=== PATIENT | female | born 1935 | race Caucasian/White ===

== ENCOUNTER 2021-03-02 09:34 | Emergency (ER) | payer OTHER ==
[~2021-03-02] VITALS: Ht 152.4 cm; Wt 68.0 kg
[2021-03-02] MEDS ORDERED: DEXTROSE 50% 50 ML SYR IVP ONE (09:36)
--- NOTE | 2021-03-02 09:36 | NUR ---
0946 MAIDA ALS TO ER BED 10
[2021-03-02 09:47] VITALS: BP 134/68
--- NOTE | 2021-03-02 09:52 | NUR ---
DR. GOMEZ BEDSIDE ATTEMPTING ULTRASOUND GUIDED IV
[2021-03-02] MEDS ORDERED: KEP500 PO (09:55)
[2021-03-02] MEDS ORDERED: CARV25TA PO (09:55)
[2021-03-02] MEDS ORDERED: AMLO10TA PO (09:55)
[2021-03-02] MEDS ORDERED: ASPI-1822 PO (09:55)
[2021-03-02] MEDS ORDERED: PAX10 PO (09:55)
[2021-03-02] MEDS ORDERED: OMEP40EC23 PO (09:55)
[2021-03-02] MEDS ORDERED: [UNRECOGNIZED DRUG - CODE] MC (09:55)
[2021-03-02] MEDS ORDERED: FURO-570 PO (09:55)
[2021-03-02] MEDS ORDERED: ALLO100T21 PO (09:55)
[2021-03-02] MEDS ORDERED: ATOR10TA PO (09:55)
--- NOTE | 2021-03-02 09:58 | NUR ---
85 Y FEMALE BIBA FROM [facility] DUE TO LOW BLOOD SUGAR. PER EMS PT GLUCOSE WAS 32 ON ARRIVAL. GLUCAGON IM GIVEN X2 TIMES IN FIELD AND RECHECK OF GLUCOSE IN FIELD WAS 34. UPON ARRIVAL GLUCOSE LEVEL IS 49. PT BASELINE IS UNKNOWN, BUT PER EMS PT IS BECOMING MORE ALERT. PT CURRENT GCS 15 AT THIS TIME. EMS ATTEMPTED IV IN FIELD AND UNSUCCESSFUL. SKIN DRY AND BRUISING NOTED THROUGHOUT BILATERAL UE ALONG WITH EDEMA NOTED ON UE HANDS. PT CURRENTLY HAS BELTRE IN PLACE FROM FACILITY. PT ALERT AT THIS TIME AND CURRENTLY A&OX3. PMH: DM, HLD, HTN, CKD, GOUT, GERD, SEZIURE, DEPRESSION HOME MEDS: LASIX, KEPPRA
--- NOTE | 2021-03-02 10:06 | NUR ---
18 G IV ESTABLISHED IN R AC VIA ULTRASOUND BY HAILEY PEREZ. BLOOD WORK COLLECTED FROM IV
--- NOTE | 2021-03-02 10:14 | NUR ---
XRAY BEDSIDE WITH PATIENT
--- NOTE | 2021-03-02 10:18 | NUR ---
SHAR VENEGAS, BLOOD WORK, AND URINE WALKED OVER TO LAB BY INSTALLATION SPECIALIST JAMAL
[2021-03-02 10:28] LABS: BASOPHILS # (AUTO) 0.1 K/uL (0.00-0.22); BASOPHILS % (AUTO) 0.7 % (0.0-2.0); HEMATOCRIT 34.1 % (36-48); HEMOGLOBIN 11.2 g/dL (12.0-16.0); LYMPHOCYTES # (AUTO) 0.7 K/uL (2.5-16.5); LYMPHOCYTES % (AUTO) 6.6 % (20.5-51.1); MEAN CORPUSCULAR HEMOGLOBIN 33 pg (27-31); MEAN CORPUSCULAR HGB CONC 33 g/dL (33-37); MEAN CORPUSCULAR VOLUME 100.9 fL (80-94); MONOCYTES # (AUTO) 0.6 K/uL (0.8-1.0); MONOCYTES % (AUTO) 5.8 % (1.7-9.3); NEUTROPHILS # (AUTO) 9.7 K/uL (1.8-7.7); NEUTROPHILS % (AUTO) 86.9 % (42.2-75.2); PLATELET COUNT (AUTO) 181 K/uL (140-450); RED BLOOD CELL COUNT(AUTO) 3.38 MIL/uL (4.20-5.40); RED CELL DISTRIBUTION WIDTH 18.6 % (11.6-13.7); WHITE BLOOD COUNT (AUTO) 11.1 K/uL (4.8-10.8)
--- NOTE | 2021-03-02 10:31 | NUR ---
PT PROVIDED WITH WARM BLANKET
[2021-03-02 10:34] LABS: BILIRUBIN,URINE NEGATIVE (NEGATIVE); BLOOD, URINE 1+ (NEGATIVE); COLOR,URINE YELLOW (YELLOW); LEUKOCYTE ESTERASE ,URINE 1+ (NEGATIVE); NITRITE, URINE NEGATIVE (NEGATIVE); UGLUCOSE NEGATIVE (NEGATIVE)
[2021-03-02 10:45] LABS: URINE AMORPHOUS URATE 1+ /HPF (None Seen); WBC,URINE 0-5 /HPF (0-5); YEAST,URINE Few /HPF (None Seen)
[2021-03-02 10:47] LABS: APPEARANCE,URINE SLIGHTLY HAZY (CLEAR)
[2021-03-02 10:52] LABS: ALBUMIN 3.6 g/dL (3.4-5.0); ANION GAP 10.2 (8-16); ASPARTATE AMINOTRANSFERASE 43 U/L (15-37); CARBON DIOXIDE 30.7 mmol/L (21-32); CHLORIDE 104 mmol/L (98-107); CREATININE 1.8 mg/dL (0.6-1.3); GLUCOSE 90 mg/dL (74-106); POTASSIUM 3.9 mmol/L (3.5-5.1); SODIUM SERUM 141 mmol/L (136-145); UREA NITROGEN, BLOOD 54 mg/dL (7-18)
--- NOTE | 2021-03-02 11:25 | NUR ---
DR. GOMEZ BEDSIDE SPEAKING WITH PT SON
--- NOTE | 2021-03-02 12:21 | NUR ---
Patient appears to be resting comfortably in bed. Vital Signs within normal limits. Respirations even and unlabored.
--- NOTE | 2021-03-02 12:29 | NUR ---
SPOKE WITH PATIENT PRASAD POOLE AND WAS INFORMED TO CONTACT [facility] TO SET UP TRANSPORATION FOR PATIENT DISCHARGE AT 1400
--- NOTE | 2021-03-02 12:32 | NUR ---
CALLED AND SPOKE WITH GEORGE HURLEY AT [facility]. WAS INFORMED THEY WOULD SET UP TRANSPORATION FOR PATIENT DISCHARGE TODAY AT 1400 Addendum: 03/02/21 at 1412 by [id number] KATRIN RING
--- NOTE | 2021-03-02 13:40 | NUR ---
Patient appears to be resting comfortably in bed. Vital Signs within normal limits. Respirations even and unlabored.
--- NOTE | 2021-03-02 14:11 | NUR ---
CALLED AND SPOKE WITH [facility] AND WAS INFORMED THAT "THEY DO NOT SET UP TRANSPORATION FOR PATIENTS AND THE HOSPITAL IS REQUIRED TO SET UP TRANSPORATION." INFORMED [facility] SPOKE WITH CHARGE NURSE AT 1232 AND WAS TOLD THEY ARE UNABLE TO SET UP TRANSPORATION
--- NOTE | 2021-03-02 14:28 | NUR ---
SPOKE WITH HANNAH FROM [facility] AND WAS INFORMED "THEY NEVER SET UP PATIENT TRANSPORATION AND WE ARE TO SET UP THE TRANSPORATION."
--- NOTE | 2021-03-02 14:30 | NUR ---
SPOKE WITH PATIENT SON VIRGILIO AND WAS INFORMED HE WILL BE HERE WITHIN THE HOUR TO RESP THERAPIST HIS MOTHER TO TAKE HER BACK TO [facility]
[2021-03-02] MEDS ORDERED: CEPH-588 PO (14:48)
--- NOTE | 2021-03-02 15:42 | NUR ---
Patient appears to be resting comfortably in bed. Vital Signs within normal limits. Respirations even and unlabored. PT REPOSITONED FOR COMFORT AT THIS TIME
[2021-03-02 16:17] VITALS: BP 152/70
--- NOTE | 2021-03-02 16:17 | NUR ---
Patient discharged with v/s stable. Written and verbal after care instructions given and explained. Patient alert, oriented and verbalized understanding of instructions. Wheel Chair Assisted with to car. All questions addressed prior to discharge. ID band removed. Patient advised to follow up with PMD. Rx of KEFLEX given. Patient educated on indication of medication including possible reaction and side effects. Opportunity to ask questions provided and answered.
--- NOTE | 2021-03-02 17:47 | NUR ---
CALLED AND GAVE REPORT TO MODESTO WALTER IN REGARDS TO PATIENT D/C
== END 2021-03-02 16:17 | disposition home or self-care (01) ==
LOC: MED 09:34
DX: E11.649 Type 2 diabetes mellitus with hypoglycemia without coma (principal); E11.22 Type 2 diabetes mellitus with diabetic chronic kidney disease; N18.9 Chronic kidney disease, unspecified; Z20.822 Contact with and (suspected) exposure to COVID-19; Z79.82 Long term (current) use of aspirin; Z79.2 Long term (current) use of antibiotics; Z79.899 Other long term (current) drug therapy
CPT/HCPCS: 36415; 71045; 80053; 81001; 84484; 85025; 87086; 87426; 93005; 99285; Q0092